=== PATIENT | male | born 1985 | race Caucasian/White ===

== ENCOUNTER 2016-08-19 11:06 | Emergency (ER) | payer SELFPAY ==
[2016-08-19 11:28] VITALS: RESP 18; TEMP 97.1
--- NOTE | 2016-08-19 14:32 | PDOC ---
General Adult HPI - General Chief Complaint: Abdomen Pain Stated Complaint: umbilical redness and discharge; tenderness Date Seen by Provider: 08/19/16 Time Seen by Provider: 11:15 Source: POSITIVE: Patient Exam Limitations: POSITIVE: No limitations Nurse's Notes Reviewed & Considered: Yes - History of Present Illness Initial Comment: The patient is a 31-year-old male. He states that for approximately the past 24 hours he has had some discomfort in and discharge from the umbilicus. He states that the discharge has occasionally been blood tinged. He also has noted some redness of the umbilicus and the immediate paraumbilical area. He complains of some discomfort over the superior aspect of the umbilicus. No fevers or chills. No nausea, vomiting, diarrhea, melena, hematochezia, dysuria or hematuria. He's not had any previous history of known hernias. No previous abdominal surgery. Have you received a tetanus shot in the past 10 years?: No Body Location Affected: REPORTS: Abdomen (Umbilical area as above) Timing: REPORTS: Constant Duration: <24 hours (Somewhat less than 24 hours) Severity: Moderate Quality: REPORTS: "Pain" (Discomfort around the umbilicus, especially superior aspect of umbilicus.) Context: REPORTS: None Modifying Factors: improves with: Nothing Similar Symptoms Previously: No Recent Care Received: REPORTS: Denies Any Prior Injuries Related to Current Complaint?: No - Patient Home Medications Home Medications: Home Medications Nystatin/Triamcin [Mycolog Ii Cream] 15 gm TP Q8H #1 cream.gm. 08/19/16 - Patient Allergies Allergies/Adverse Reactions: Allergies Allergy/AdvReac Type Severity Reaction Status Date / Time No Known Allergies Allergy Unverified 08/19/16 11:13 Past Medical History - heen HEENT History: Denies History Cardiovascular History: Denies History Respiratory History: Denies History Gastrointestinal History: Denies History Genitourinary History: Denies History Endocrine History: Denies History Musculoskeletal History: Denies History Prosthesis or Implant: No Neurological History: Denies History Blood Disorders: Denies History Psychiatric History: Denies History History of Sexually Transmitted Diseases: No Male Reproductive History: Denies History Cancer History: Denies History In Past Year Been Physically Harmed or Verbally Threatened: No History of MDRO: No History of Other Communicable Diseases: No Tobacco Use: Current Every Day Smoker Alcohol Use: Rarely Substance Use Type: None Previous Surgical History: No Significant Family History: No pertinent family hx Past Medical History Reviewed: Reviewed - No Changes ROS - Limitations ROS Limitations: No Limitations Constitution: REPORTS: Denies Symptoms Cardiovascular: REPORTS: Denies Cardiac Symptoms Respiratory: REPORTS: Denies Resp Symptoms Neurological: REPORTS: Denies Neuro Symptoms Gastrointestinal: REPORTS: Abdominal Pain (Some discomfort superior aspect paraumbilical area.) Endocrine: REPORTS: Denies Symptoms Musculoskeletal: REPORTS: Denies MS Symptoms Genitourinary: REPORTS: Denies Symptoms Eyes: REPORTS: Denies Symptoms ENT: REPORTS: Denies Symptoms Skin: REPORTS: Other (Redness in and immediately around umbilicus with some discharge) Lympathic: REPORTS: Denies Lympathic Symptoms Immunologic: POSITIVE: Denies Symptoms Psychiatric: POSITIVE: Denies Psych Symptoms General Adult Exam - General Appearance General Appearance: POSITIVE: Alert, Cooperative, No Acute Distress. NEGATIVE: No Evidence of Trauma, Anxious, Cervical Spine Protection, Lethargic, Mild Distress, Moderate Distress, Obtunded, CLIENT SERVICE ASSOCIATE, Severe Distress, Spinal Immobilization, Unresponsive, Uncooperative, Other - Pupils Pupil Size: 3 mm: Bilateral - Neck Neck: POSITIVE: Normal Inspection, Thyroid Normal - Respiratory Respiratory: POSITIVE: No Respiratory Distress, Breath Sounds Normal, Chest Non- Tender - Cardiovascular Cardiovascular: POSITIVE: Regular Rate & Rhythm, No Murmur, No Gallop, PMI Normal Peripheral Pulses: Radial (R): 2+, Radial (L): 2+ - Abdomen Abdomen: Soft: (All Quadrants), Normal Bowel Sounds: (All Quadrants), Denies Tenderness: (All Quadrants), No Splenomegaly: (All Quadrants), No Hepatomegaly: (All Quadrants), No Guarding: (All Quadrants), No Rebound: (All Quadrants), No Palpable Pulse: (All Quadrants), No Palpabale Mass: (All Quadrants), No Distention: (All Quadrants), No Rigidity: (All Quadrants) - Back Back: POSITIVE: Normal Inspection - Skin Skin: POSITIVE: Erythema (Umbilical an immediate paraumbilical area), Rash ( Monilial-appearing rash umbilical and immediate paraumbilical area) - Extremities Extremity: Non-Tender: (All Extremities), Normal ROM: (All Extremities), Normal Inspection: (All Extremities) - Neurological / Psychological Neurological: POSITIVE: Oriented X3, computer network specialist Normal As Tested, Motor Normal, Sensation Normal, 5, 6 Images - Complete Complete: 1 - Mild erythema and discharge was some mild tenderness on palpation General Adult Progress - Patient's Progress Pain Medication Addressed: POSITIVE: Yes (Recommended Advil or Tylenol) School/Work Release Addressed: POSITIVE: Yes (Work excuse for one day given) Re-Examine Time: 11:35 Status: POSITIVE: Unchanged Antibiotics Given: Yes (Mycolog-II ointment locally) - Consult Counseled: POSITIVE: Patient, Family (), RE: DX, RE: Need for F/U Patient Care Time - Estimated PCT Patient Care Time (In Minutes): 20 Vital Signs - Recent Vital Signs Vital Signs: Vital Signs (Last 8 hours) Temp Pulse Resp BP Pulse Ox 08/19/16 11:17 97.1 F 90 18 166/94 96 - VS Reviewed Vital Signs Reviewed: Yes Discharge Clinical Impression: Monilia infection, Umbilical hernia Discharge Disposition: Discharged to Home Condition: Good Prescriptions / Orders: Nystatin/Triamcin [Mycolog Ii Cream] 15 gm TP Q8H #1 cream.gm. Patient Instructions Given at Discharge: Umbilical Hernia (ED), Skin Yeast Infection (ED) Additional Instructions: I believe the discharge you're experiencing from your umbilicus (belly button) is most likely due to yeast infection. Please massage a small amount of Mycolog -II ointment into the belly button 2-3 times daily. You may also have a small umbilical hernia, which may be causing you some discomfort. There is no evidence of incarceration or other serious complication from this problem. If you notice a progressively large outpouching of the abdominal wall around the bellybutton, or if discomfort worsens, follow-up with your primary care provider or surgeon, and this can be repaired. Return here anytime if condition worsens in any way whatsoever. Follow Up With: NONE,NONE [Primary Care Provider] - (Instructions as above. Follow-up with your primary care provider or surgeon. Return here anytime if condition worsens.)
== END 2016-08-19 12:20 ==
LOC: ER 11:06
DX: B37.89 Other sites of candidiasis (principal); K42.9 Umbilical hernia without obstruction or gangrene
CPT/HCPCS: 99282